=== PATIENT | male | born 1990 | race Caucasian/White ===

== ENCOUNTER 2022-05-22 13:37 | Emergency (ER) | payer MEDICAID ==
[2022-05-22] MEDS ORDERED: Sodium Chloride 0.9% 10 ML Syringe FLUSH PRN (13:50)
[2022-05-22] MEDS ORDERED: Diphtheria,Pertussis(Acell),Tetanus Vaccine 0.5 ML Syringe IM ONE (13:52)
[2022-05-22] MEDS ORDERED: Iopamidol 612 MG/ML 100 ML Bottle IVPUSH ONE (13:57)
[2022-05-22 14:24] LABS: ANION GAP 11.9 mEq/L (7-13); CHLORIDE,CL 99 mmol/L (98-107); SODIUM,NA 137 mmol/L (136-145)
[2022-05-22 14:27] VITALS: BP 141/84; PULSE 86
[2022-05-22 14:30] LABS: ESTIMATED GFR 75 mL/min (>=60)
[2022-05-22] MEDS ORDERED: Lidocaine 1% 5 ML VIAL INJECT ONE (14:49)
[2022-05-22] MEDS ORDERED: Bacitracin Oint 1 GM U/D Packet TOP ONE (15:47)
== END 2022-05-22 17:20 | disposition home or self-care (01) ==
LOC: DL.ED 13:37
DX: S81.812A Laceration without foreign body, left lower leg, initial encounter (principal); E10.9 Type 1 diabetes mellitus without complications; E66.9 Obesity, unspecified; Z68.36 Body mass index [BMI] 36.0-36.9, adult; Z88.0 Allergy status to penicillin; Z79.899 Other long term (current) drug therapy; W28.XXXA Contact with powered lawn mower, initial encounter
CPT/HCPCS: 12002; 36415; 73701-LT; 80053; 85025; 90471; 90715; 99282; 99284-25; J3490; Q9967